=== PATIENT | male | born 1990 | race African-American/Black ===

== ENCOUNTER 2017-11-04 12:33 | Emergency (ER) | payer MEDICAID ==
[~2017-11-04] VITALS: Ht 180.3 cm; Wt 74.8 kg
[2017-11-04 12:34] VITALS: Ht 180.3 cm; Wt 74.8 kg
== END 2017-11-04 12:44 | disposition left against medical advice (07) ==
LOC: ED 12:33
DX: Z53.21 Procedure and treatment not carried out due to patient leaving prior to being seen by health care provider (principal)

== ENCOUNTER 2018-06-16 13:06 | Emergency (ER) | payer MEDICAID ==
[~2018-06-16] VITALS: Ht 180.3 cm; Wt 80.9 kg
[2018-06-16 13:25] VITALS: BP 159/72
== END 2018-06-16 14:05 | disposition home or self-care (01) ==
LOC: ED 13:06
DX: L03.012 Cellulitis of left finger (principal); L84 Corns and callosities; Z86.73 Personal history of transient ischemic attack (TIA), and cerebral infarction without residual deficits; Z98.84 Bariatric surgery status